=== PATIENT | male | born 2005 | race Caucasian/White ===

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

== ENCOUNTER 2025-03-31 11:52 | Observation (INO) | payer OTHER ==
--- NOTE | 2025-03-31 12:08 | ERPHSYRPT ---
- History of Present Illness Time Seen by Provider: 03/31/25 11:56 Source: patient, old records Physician History: This is a 19-year-old male sent from his primary care physician Dr. Kerr for 3 days of nausea vomiting and diarrhea with abdominal pain and fevers up to 104. He has not eaten for the past 2 days. He saw in outpatient clinic was placed on Zofran which has not helped his appetite. It has not helped his vomiting. He was diagnosed with a viral URI/gastroenteritis. He continues to have symptoms. Allergies/Adverse Reactions: No Known Drug Allergies Allergy (Verified 03/31/25 12:07) Home Medications: Ondansetron ODT 4 MG [Zofran Odt 4 mg] 4 mg PO Q6HPRN PRN 03/31/25 [History] Hx Tetanus, Diphtheria Vaccination/Date Given: Yes Hx Influenza Vaccination/Date Given: Yes Hx Pneumococcal Vaccination/Date Given: No - Review of Systems All Other Systems: Reviewed and Negative (As per HPI otherwise negative) - Past Medical History Pertinent Past Medical History: No GI Medical History: Hernia - Past Surgical History Past Surgical History: Yes Gastrointestinal: Hernia Repair - Social History Smoking Status: Never smoker Exposure to second hand smoke: No Drug Use: none Patient Lives Alone: No - Nursing Vital Signs Nursing Vital Signs: Initial Vital Signs Blood Pressure 152/105 03/31/25 12:00 O2 Sat by Pulse Oximetry 98 03/31/25 12:00 Pain Scale Pain Intensity 0 - Physical Exam Comments: 03/31/25 12:02 General: Well-nourished well-developed. No apparent distress. HEENT: Normocephalic atraumatic no obvious facial or neck deformity or injury. Neck: Supple. No deformity or mass noted. CV: RRR NL Perfusion. No edema Resp: No Respiratory distress or adventitious breath sounds Abd: ND use tenderness to palpation. MSK: No deformity or TTP Neuro: Alert and [place] x4. No gross focal neurologic changes Psych: No SI, HI or grave disability Ordered Tests: Active Orders 24 hr Category Date Time Status IV Insertion STAT Care 03/31/25 12:02 Active NPO (ED) STAT Care 03/31/25 12:02 Active ABDOMEN AND PELVIS W CONTRAST [CT] Stat Exams 03/31/25 12:03 Completed CBC W DIFF Stat Lab 03/31/25 12:18 Completed CMP Stat Lab 03/31/25 12:18 Completed LIPASE Stat Lab 03/31/25 12:18 Completed Lactic Acid Stat Lab 03/31/25 12:02 Completed Manual Differential NC Stat Lab 03/31/25 12:18 Completed Medication Summary Discontinued Medications Generic Name Dose Route Start Last Admin Trade Name Freq PRN Reason Stop Dose Admin Hydromorphone HCl 0.5 mg 03/31/25 12:02 03/31/25 12:25 Hydromorphone 1 Mg/1ml Inj IV 03/31/25 12:03 0.5 mg STAT ONE Administration Hydromorphone HCl Confirm 03/31/25 12:22 Hydromorphone 1 Mg/1ml Inj Administered 03/31/25 12:23 Dose 1 mg .ROUTE .STK-MED ONE Sodium Chloride 1,000 mls @ 999 mls/hr 03/31/25 12:02 03/31/25 13:31 Sodium Chloride 0.9% 1000 Ml IV 03/31/25 13:02 Infused .Q1H1M STA Infusion Sodium Chloride Confirm 03/31/25 12:22 Sodium Chloride 0.9% 1000 Ml Administered 03/31/25 12:23 Dose 1,000 mls @ ud .ROUTE .STK-MED ONE Sodium Chloride 1,000 mls @ 999 mls/hr 03/31/25 13:00 03/31/25 14:11 Sodium Chloride 0.9% 1000 Ml IV 03/31/25 14:00 Infused .Q1H1M STA Infusion Sodium Chloride Confirm 03/31/25 13:07 Sodium Chloride 0.9% 1000 Ml Administered 03/31/25 13:08 Dose 1,000 mls @ ud .ROUTE .STK-MED ONE Ondansetron HCl 4 mg 03/31/25 12:02 03/31/25 12:25 Ondansetron Hcl 4 Mg/2 Ml Vial IV 03/31/25 12:03 4 mg STAT ONE Administration Ondansetron HCl Confirm 03/31/25 12:21 Ondansetron Hcl 4 Mg/2 Ml Vial Administered 03/31/25 12:22 Dose 4 mg .ROUTE .STK-MED ONE Lab/Rad Data: Laboratory Result Diagrams 03/31/25 12:18 03/31/25 12:18 Laboratory Results 03/31/25 03/31/25 03/31/25 Range/Units 12:18 12:18 12:02 WBC 5.5 (4.23-9.07) x10^3/uL RBC 5.45 (4.63-6.08) x10^6/uL Hgb 16.6 (13.7-17.5) g/dL Hct 48.4 (40.1-51.0) % MCV 88.8 (79.0-92.2) fL MCH 30.5 (25.7-32.2) pg MCHC 34.3 (32.3-36.5) g/dL RDW 12.2 (11.6-14.4) % Plt Count 163 (163-337) x10^3/uL MPV 9.1 L (9.4-12.4) fL Segmented Neutrophils 77 H (34.0-67.9) % Band Neutrophils 5 H (0.0-2.0) % Lymphocytes (Manual) 12 L (21.8-53.1) % Monocytes (Manual) 5 L (5.3-12.2) % Atypical Lymphocytes 1 % Platelet Estimate NORMAL (NORMAL) RBC Morphology NORMAL Sodium 130 L (135-145) mmol/L Potassium 4.1 (3.5-5.1) mmol/L Chloride 96 L (98-107) mmol/L Carbon Dioxide 22 (22-30) mmol/L Anion Gap 15.6 H (5-15) MEQ/L BUN 12 (9-20) mg/dL Creatinine 0.86 (0.66-1.25) mg/dL Estimated GFR 127.1 ML/MIN Glucose 114 H (74-106) mg/dL Lactic Acid 1.2 (0.4-2.0) Calcium 8.9 (8.4-10.2) mg/dL Total Bilirubin 1.30 (0.2-1.3) mg/dL AST 30 (17-59) U/L ALT 20 (0-50) U/L Alkaline Phosphatase 94 (38-126) U/L Serum Total Protein 7.2 (6.3-8.2) g/dL Albumin 4.2 (3.5-5.0) g/dL Lipase 36 (23-300) U/L - Progress Progress Note: 10/14/25 14:35 Evidence of colitis on CT. discussed with hospitalist will keep patient in hospital for IV hydration, bowel rest, IV fluids. Patient at this time would likely not be candidate for any GI scoping until colitis was improved and at this time there is no evidence of abscess or other complication with normal white count otherwise stable vital signs. Patient and family including father at bedside. 03/31/25 15:22 - Departure Departure Disposition: Observation Clinical Impression: Colitis, Dehydration, Abdominal pain Condition: Stable Critical Care Time: No Referrals: PRATIMA KWAN MD [Primary Care Provider, [facility]ILY [facility]ACT[facility]] - Follow up/PCP as directed
[2025-03-31 12:21] LABS: Hematocrit 48.4 % (40.1-51.0); Hemoglobin 16.6 g/dL (13.7-17.5); Mean Corpuscular Hemoglobin 30.5 pg (25.7-32.2); Mean Corpuscular Hgb Concent. 34.3 g/dL (32.3-36.5); Platelet Count 163 x10^3/uL (163-337); Red Blood Count 5.45 x10^6/uL (4.63-6.08); White Blood Count 5.5 x10^3/uL (4.23-9.07)
[2025-03-31] MEDS ORDERED: Zofran 4 MG/2 ML VIAL ONE (12:21)
[2025-03-31] MEDS ORDERED: Hydromorphone 1 mg/ml Injection ONE ×2 (12:22→15:31)
[2025-03-31] MEDS: Zofran 4 MG/2 ML VIAL IV ONE (12:25)
[2025-03-31] MEDS: Hydromorphone 1 mg/ml Injection IV ONE ×2 (12:25→15:36)
[2025-03-31 12:37] LABS: Calcium 8.9 mg/dL (8.4-10.2); Carbon Dioxide 22.0 mmol/L (22-30); Creatinine 1 0.86 mg/dL (0.66-1.25); EST GLOMERULAR FILTRATION RATE 127.1 ML/MIN; Glucose 114.0 mg/dL (74-106); Potassium 4.1 mmol/L (3.5-5.1); SGOT/AST 30.0 U/L (17-59); SGPT/ALT 20.0 U/L (0-50); Total Protein 7.2 g/dL (6.3-8.2)
--- NOTE | 2025-03-31 14:09 | XRAY ---
Indication: Pain. Multiple contiguous axial images obtained through the abdomen and pelvis using 80 cc Isovue 370 contrast. Comparison: None Lung bases clear. Heart not enlarged. Noncontrasted stomach and bowel loops appear nonobstructed with normal appendix. There is diffuse circumferential colonic bowel wall thickening either incomplete distention versus colitis. No free fluid/air. Remaining liver, gallbladder, pancreas, spleen, adrenal glands, kidneys, ureters, bladder, and aorta are normal in CT appearance and attenuation. No pathologic retroperitoneal lymphadenopathy. Osseous structures intact. No ventral or inguinal hernias. Impression: 1. Diffuse circumferential colonic bowel wall thickening either incomplete distention versus colitis. Correlate clinically. 2. Remaining CT abdomen/pelvis with contrast exam is negative.
[2025-03-31 15:06] LABS: BAND 5 % (0.0-2.0); Total Cells Counted 100
[2025-03-31] MEDS ORDERED: PIPERACILLIN/TAZOBACTAM IV ONE (15:31)
--- NOTE | 2025-03-31 17:04 | PCM.HP ---
<MEREDITH WALKER - Last Filed: 03/31/25 17:12> History of Present Illness - Chief Complaint Chief Complaint: Colitis; Dehydration; Abdominal Pain Date: 03/31/25 History of Present Illness: is a 19 year old male with no significant PMHX who presented to ED 03/31/25 after referral from his primary care provider for three days of persistent nausea, vomiting, and diarrhea, accompanied by subjective fevers up to 104F. He reported profuse watery diarrhea occurring approximately every 30 minutes, associated with diffuse lower abdominal cramping and aching pain. The pain was described as constant with intermittent exacerbations, non-radiating, and worsened prior to diarrheal episodes. He endorsed poor oral intake over the past two days and minimal relief from outpatient Zofran, which he was prescribed for nausea and vomiting. On arrival, he was afebrile at 99.3F, hypertensive at 152/105 mm Hg, and otherwise hemodynamically stable. Physical examination revealed diffuse lower abdominal tenderness without rebound, guarding, or rigidity, and hyperactive bowel sounds were noted. Laboratory evaluation showed a normal WBC of 5.5 10, sodium 130, chloride 96, anion gap 15.6, and normal lactic acid (1.2 ) and lipase (36 ). CT abdomen and pelvis with contrast revealed diffuse circumferential colonic wall thickening, interpreted as either incomplete distention or colitis, with no abscess, obstruction, or perforation identified. In the ED, the patient received a total of 2 liters of IVF, was started on IV Zosyn for empiric treatment of presumed infectious colitis, and was given analgesia for abdominal pain along with antiemetics for nausea. He remained stable following interventions and was admitted for continued IV fluid therapy, antibiotics, and close monitoring. - Review of Systems Constitutional: Fever Eyes: No Symptoms Ears, Nose, & Throat: No Symptoms Respiratory: No Symptoms Cardiac: No Symptoms Abdominal/Gastrointestinal: Abdominal Pain, Nausea, Vomiting, Diarrhea Genitourinary Symptoms: No Symptoms Musculoskeletal: No Symptoms Skin: No Symptoms Neurological: No Symptoms Psychological: No Symptoms Endocrine: No Symptoms Hematologic/Lymphatic: No Symptoms Immunological/Allergic: No Symptoms Medications & Allergies Home Medications: Home Medication List Ondansetron ODT 4 MG [Zofran Odt 4 mg] 4 mg PO Q6HPRN PRN 03/31/25 [History Confirmed 03/31/25] Allergies/Adverse Reactions: Allergies Allergy/AdvReac Type Severity Reaction Status Date / Time No Known Drug Allergies Allergy Verified 03/31/25 16:03 - Past Medical History Past Medical History: No Neurological History: No Pertinent History ENT History: No Pertinent History Cardiac History: No Pertinent History Respiratory History: No Pertinent History Endocrine Medical History: No Pertinent History Musculoskelatal History: Fractures GI Medical History: Hernia History: No Pertinent History Pyscho-Social History: No Pertinent History Male Reproductive Disorders: No Pertinent History Comment: facial fractures - Past Surgical History Past Surgical History: Yes Neuro Surgical History: No Pertinent History Cardiac History: No Pertinent History Respiratory Surgery: No Pertinent History GI Surgical History: Hernia Repair Genitourinary Surgical Hx: No Pertinent History Musculskeletal Surgical Hx: No Pertinent History Male Surgical History: No Pertinent History Significant Family History: heart disease, cancer, diabetes, hypertension, stroke, other (liver diseas COPD) - Social History Smoking Status: Former smoker How long have you smoked: 1 Exposure to second hand smoke: No Alcohol: Occasionally Drug Use: none - Social Determinants of Health Will the patient participate in the screening: Yes Do you worry about a steady place to live?: No Do you have any problems with any of the following?: No known problems In the past 12 months,have you had to go without utilities?: No Have you or anyone in your house had to go without enough: No Transportation Issues: No Has anyone in your support network made you feel unsafe?: No Does the patient want assistance with any of the above?: No - Physical Exam Vital Signs: Vital Signs - 24 hr Temp Pulse Resp BP BP Pulse Ox 03/31/25 16:16 98.4 F 97 H 16 146/103 92 L 03/31/25 16:00 98.4 F 97 H 16 146/103 92 L 03/31/25 15:30 158/97 96 03/31/25 15:00 162/104 97 03/31/25 14:30 139/95 98 03/31/25 14:00 147/90 97 03/31/25 13:00 143/92 96 03/31/25 12:30 149/92 96 03/31/25 12:01 99.3 F 71 152/105 99 03/31/25 12:00 152/105 98 General Appearance: no apparent distress Neurologic Exam: alert, oriented x 3, cooperative Eye Exam: PERRL/EOMI Ears, Nose, Throat Exam: normal ENT inspection Neck Exam: normal inspection Respiratory Exam: normal breath sounds, lungs clear Cardiovascular Exam: regular rate/rhythm, normal heart sounds Gastrointestinal/Abdomen Exam: soft, tenderness (lower abdomen RLQ/LLQ - Hyperactive BS x 4 quads) Rectal Exam: deferred Back Exam: normal inspection Extremity Exam: normal inspection Skin Exam: normal color Results - Labs Lab/Micro Results: Lab Results-Last 24 Hours 03/31/25 03/31/25 03/31/25 Range/Units 12:02 12:18 12:18 WBC 5.5 (4.23-9.07) x10^3/uL RBC 5.45 (4.63-6.08) x10^6/uL Hgb 16.6 (13.7-17.5) g/dL Hct 48.4 (40.1-51.0) % MCV 88.8 (79.0-92.2) fL MCH 30.5 (25.7-32.2) pg MCHC 34.3 (32.3-36.5) g/dL RDW 12.2 (11.6-14.4) % Plt Count 163 (163-337) x10^3/uL MPV 9.1 L (9.4-12.4) fL Segmented Neutrophils 77 H (34.0-67.9) % Band Neutrophils 5 H (0.0-2.0) % Lymphocytes (Manual) 12 L (21.8-53.1) % Monocytes (Manual) 5 L (5.3-12.2) % Atypical Lymphocytes 1 % Platelet Estimate NORMAL (NORMAL) RBC Morphology NORMAL Sodium 130 L (135-145) mmol/L Potassium 4.1 (3.5-5.1) mmol/L Chloride 96 L (98-107) mmol/L Carbon Dioxide 22 (22-30) mmol/L Anion Gap 15.6 H (5-15) MEQ/L BUN 12 (9-20) mg/dL Creatinine 0.86 (0.66-1.25) mg/dL Estimated GFR 127.1 ML/MIN Glucose 114 H (74-106) mg/dL Lactic Acid 1.2 (0.4-2.0) Calcium 8.9 (8.4-10.2) mg/dL Total Bilirubin 1.30 (0.2-1.3) mg/dL AST 30 (17-59) U/L ALT 20 (0-50) U/L Alkaline Phosphatase 94 (38-126) U/L Serum Total Protein 7.2 (6.3-8.2) g/dL Albumin 4.2 (3.5-5.0) g/dL Lipase 36 (23-300) U/L - Radiology Impressions Radiology Exams & Impressions: Radiology Procedures Category Date Time Status ABDOMEN AND PELVIS W CONTRAST [CT] Stat Exams 03/31/25 12:03 Completed Assessment/Plan (1) Acute colitis Current Visit: Yes Status: Acute Assessment & Plan: -CT abdomen and pelvis with contrast revealed diffuse circumferential colonic wall thickening, interpreted as either incomplete distention or colitis, with no abscess, obstruction, or perforation identified -Continue IV Zosyn for broad-spectrum empiric coverage pending stool studies; de-escalate once pathogen identified -NPO; advance diet as tolerated once symptoms improve. -Obtain stool studies including culture, C. difficile toxin, and GI pathogen panel. --CBC, CMP reviewed- trend -Monitor stool frequency, abdominal exam, and hydration status closely. -Consider surgery consultation if diarrhea persists or patient develops worsening pain, hematochezia, or systemic symptoms. Code(s): K52.9 - NONINFECTIVE GASTROENTERITIS AND COLITIS, UNSPECIFIED (2) Hyponatremia Current Visit: Yes Status: Acute Assessment & Plan: -mild at 130- Received 2 L normal saline bolus in the ED; continue isotonic maintenance fluids until oral intake is adequate. -Monitor serum sodium and electrolytes -Reassess volume status daily; taper IV fluids once patient tolerates oral hyd ration. Code(s): E87.1 - HYPO-OSMOLALITY AND HYPONATREMIA (3) Nausea & vomiting Current Visit: Yes Status: Acute Assessment & Plan: -Continue IV Zofran PRN for symptomatic control. -NPO until vomiting resolves, then initiate clear liquids. -Monitor for improvement as dehydration and infection resolve. Code(s): R11.2 - NAUSEA WITH VOMITING, UNSPECIFIED (4) Diarrhea Current Visit: Yes Status: Acute Assessment & Plan: -Hold immodium until CDiff complete - if negative can start -CDiff, stool culture, O&P, giardia -IVF Code(s): R19.7 - DIARRHEA, UNSPECIFIED (5) Abdominal pain Current Visit: Yes Status: Acute Assessment & Plan: -see plan for colitis Code(s): R10.9 - UNSPECIFIED ABDOMINAL PAIN (6) Reactive hypertension Current Visit: Yes Status: Acute Assessment & Plan: -Likely secondary to discomfort, stress, and dehydration. -Continue BP monitoring during rehydration; expect normalization with volume correction. -No initiation of chronic antihypertensive therapy at this time. VTE: SCD PPI: Protinix Dispo: 1-2 days Code status: Full code Plan of care time spent > 45 mins Code(s): I10 - ESSENTIAL (PRIMARY) HYPERTENSION Telemedicine Encounter - Telemedicine Encounter Telemedicine Encounter: "The entirety of this encounter was performed via Telemedicine" This visit was performed using real-time audio and video connection between my location and thepatients locationwith the assistance of a surrogateat the patients location. Written or verbal consent was obtained from the patient/guardian to perform this visit usingEmgonchrFlowgramtelemedicine technology. Any patient questions regarding the telemedicine interaction were answered. <AMRBOSIO PARHAM - Last Filed: 03/31/25 19:34> History of Present Illness - Chief Complaint History of Present Illness: is a 19 year old male. - Physical Exam Vital Signs: Vital Signs - 24 hr Temp Pulse Resp BP BP Pulse Ox 03/31/25 18:07 86 145/91 03/31/25 16:16 98.4 F 97 H 16 146/103 92 L 03/31/25 16:00 98.4 F 97 H 16 146/103 92 L 03/31/25 15:30 158/97 96 03/31/25 15:00 162/104 97 03/31/25 14:30 139/95 98 03/31/25 14:00 147/90 97 03/31/25 13:00 143/92 96 03/31/25 12:30 149/92 96 03/31/25 12:01 99.3 F 71 152/105 99 03/31/25 12:00 152/105 98 Results - Labs Lab/Micro Results: Lab Results-Last 24 Hours 03/31/25 03/31/25 03/31/25 Range/Units 12:02 12:18 12:18 WBC 5.5 (4.23-9.07) x10^3/uL RBC 5.45 (4.63-6.08) x10^6/uL Hgb 16.6 (13.7-17.5) g/dL Hct 48.4 (40.1-51.0) % MCV 88.8 (79.0-92.2) fL MCH 30.5 (25.7-32.2) pg MCHC 34.3 (32.3-36.5) g/dL RDW 12.2 (11.6-14.4) % Plt Count 163 (163-337) x10^3/uL MPV 9.1 L (9.4-12.4) fL Segmented Neutrophils 77 H (34.0-67.9) % Band Neutrophils 5 H (0.0-2.0) % Lymphocytes (Manual) 12 L (21.8-53.1) % Monocytes (Manual) 5 L (5.3-12.2) % Atypical Lymphocytes 1 % Platelet Estimate NORMAL (NORMAL) RBC Morphology NORMAL Sodium 130 L (135-145) mmol/L Potassium 4.1 (3.5-5.1) mmol/L Chloride 96 L (98-107) mmol/L Carbon Dioxide 22 (22-30) mmol/L Anion Gap 15.6 H (5-15) MEQ/L BUN 12 (9-20) mg/dL Creatinine 0.86 (0.66-1.25) mg/dL Estimated GFR 127.1 ML/MIN Glucose 114 H (74-106) mg/dL POC Glucometer (74 to 106) mg/dL Lactic Acid 1.2 (0.4-2.0) Calcium 8.9 (8.4-10.2) mg/dL Total Bilirubin 1.30 (0.2-1.3) mg/dL AST 30 (17-59) U/L ALT 20 (0-50) U/L Alkaline Phosphatase 94 (38-126) U/L Serum Total Protein 7.2 (6.3-8.2) g/dL Albumin 4.2 (3.5-5.0) g/dL Lipase 36 (23-300) U/L C. difficile Screen (NEGATIVE) C.difficile [id number]-[id number] (NEGATIVE) 03/31/25 03/31/25 Range/Units 17:26 17:53 WBC (4.23-9.07) x10^3/uL RBC (4.63-6.08) x10^6/uL Hgb (13.7-17.5) g/dL Hct (40.1-51.0) % MCV (79.0-92.2) fL MCH (25.7-32.2) pg MCHC (32.3-36.5) g/dL RDW (11.6-14.4) % Plt Count (163-337) x10^3/uL MPV (9.4-12.4) fL Segmented Neutrophils (34.0-67.9) % Band Neutrophils (0.0-2.0) % Lymphocytes (Manual) (21.8-53.1) % Monocytes (Manual) (5.3-12.2) % Atypical Lymphocytes % Platelet Estimate (NORMAL) RBC Morphology Sodium (135-145) mmol/L Potassium (3.5-5.1) mmol/L Chloride (98-107) mmol/L Carbon Dioxide (22-30) mmol/L Anion Gap (5-15) MEQ/L BUN (9-20) mg/dL Creatinine (0.66-1.25) mg/dL Estimated GFR ML/MIN Glucose (74-106) mg/dL POC Glucometer 95 (74 to 106) mg/dL Lactic Acid (0.4-2.0) Calcium (8.4-10.2) mg/dL Total Bilirubin (0.2-1.3) mg/dL AST (17-59) U/L ALT (0-50) U/L Alkaline Phosphatase (38-126) U/L Serum Total Protein (6.3-8.2) g/dL Albumin (3.5-5.0) g/dL Lipase (23-300) U/L C. difficile Screen NEGATIVE (NEGATIVE) C.difficile 027-NAP1-B1 PRESUMPTIVE NEGATIVE (NEGATIVE) Accuchecks Date 03/31/25 Time 17:30 - Radiology Impressions Radiology Exams & Impressions: Radiology Procedures Category Date Time Status ABDOMEN AND PELVIS W CONTRAST [CT] Stat Exams 03/31/25 12:03 Completed Telemedicine Encounter - Telemedicine Encounter Telemedicine Encounter: "The entirety of this encounter was performed via Telemedicine" This visit was performed using real-time audio and video connection between my location and thepatients locationwith the assistance of a surrogateat the patients location. Written or verbal consent was obtained from the p atient/guardian to perform this visit usingFirst Wave technology. Any patient questions regarding the telemedicine interaction were answered. MAXWELL Encounter - MAXWELL Encounter Attestation MAXWELL Encounter Attestation: "IhSIRISHA Morrissey andhavediscussed pertinent aspects of their care with Meredith Copeland agree with the history, physical exam (any modifications based on my personal exam will be noted below), assessment, and plan as outlined in original note. Please see immediately below for my summary of findings and additional assessment and plan along with any meaningful corrections/explanations to the Subjective/Objective portions of the MAXWELL note will be noted." My portion of the encounter took place via telemedicine. -Patient with 3 days of severe diarrhea, however does not have any vomiting or abdominal pain anymore. Reports fevers but normal WBC on labs. Possible colitis on CT. Clinical picture more consistent with viral gastroenteritis however started on antibiotic due to report of high grade fever, colitis on CT. Stool sent for testing. Will monitor for improvement.
[2025-03-31] MEDS ORDERED: Zofran 4 MG/2 ML VIAL IV PRN (17:15)
[2025-03-31] MEDS ORDERED: FEVERALL 650 MG PR PRN (17:15)
[2025-03-31] MEDS: MORPHINE SULFATE 2 MG INJ IV PRN (17:30)
[2025-03-31 18:47] LABS: 027 TOX PROD PRESUMPTIVE NEGATIVE (NEGATIVE); TOXIGENIC C. DIFF ORG NEGATIVE (NEGATIVE)
[2025-03-31] MEDS: TYLENOL 325 MG PO PRN (19:30)
[2025-03-31] MEDS: MORPHINE SULFATE 4 MG INJ IV ONE (19:30)
[2025-03-31 20:32] LABS: Calcium 8.2 mg/dL (8.4-10.2); Carbon Dioxide 22.0 mmol/L (22-30); Creatinine 1 0.82 mg/dL (0.66-1.25); EST GLOMERULAR FILTRATION RATE 129.0 ML/MIN; Glucose 97.0 mg/dL (74-106); Potassium 3.8 mmol/L (3.5-5.1)
[2025-04-01] MEDS: MORPHINE SULFATE 4 MG INJ IV PRN (00:05)
[2025-04-01] MEDS: IMODIUM 2 MG PO PRN (00:13)
[2025-04-01 04:56] LABS: Hematocrit 41.6 % (40.1-51.0); Hemoglobin 14.2 g/dL (13.7-17.5); Mean Corpuscular Hemoglobin 30.7 pg (25.7-32.2); Mean Corpuscular Hgb Concent. 34.1 g/dL (32.3-36.5); Platelet Count 138 x10^3/uL (163-337); Red Blood Count 4.62 x10^6/uL (4.63-6.08); White Blood Count 4.8 x10^3/uL (4.23-9.07)
[2025-04-01 05:05] LABS: Calcium 8.3 mg/dL (8.4-10.2); Carbon Dioxide 23.0 mmol/L (22-30); Creatinine 1 0.83 mg/dL (0.66-1.25); EST GLOMERULAR FILTRATION RATE 128.5 ML/MIN; Glucose 91.0 mg/dL (74-106); Potassium 3.6 mmol/L (3.5-5.1); SGOT/AST 21.0 U/L (17-59); SGPT/ALT 13.0 U/L (0-50); Total Protein 6.0 g/dL (6.3-8.2)
[2025-04-01 05:39] LABS: BAND 18 % (0.0-2.0); Total Cells Counted 100
[2025-04-01] MEDS: MORPHINE SULFATE 2 MG INJ IV PRN (07:28)
[2025-04-01] MEDS: NORCO 5/325 MG PO PRN (08:52)
[2025-04-01] MEDS: PROTONIX 40 MG IV IV SCH (08:53)
[2025-04-01] MEDS: BENTYL 20 MG PO SCH (09:00)
--- NOTE | 2025-04-01 09:03 | PCM.NOTE ---
Date and Time: 04/01/25 0856 Subjective Assessment: is a 19 year old male with no significant PMHX who presented to ED 03/31/25 after referral from his primary care provider for three days of persistent nausea, vomiting, and diarrhea, accompanied by subjective fevers up to 104F. He reported profuse watery diarrhea occurring approximately every 30 minutes, associated with diffuse lower abdominal cramping and aching pain. The pain was described as constant with intermittent exacerbations, non-radiating, and worsened prior to diarrheal episodes. He endorsed poor oral intake over the past two days and minimal relief from outpatient Zofran, which he was prescribed for nausea and vomiting. On arrival, he was afebrile at 99.3F, hypertensive at 152/105 mm Hg, and otherwise hemodynamically stable. Physical examination revealed diffuse lower abdominal tenderness without rebound, guarding, or rigidity, and hyperactive bowel sounds were noted. Laboratory evaluation showed a normal WBC of 5.5 10, sodium 130, chloride 96, anion gap 15.6, and normal lactic acid (1.2 ) and lipase (36 ). CT abdomen and pelvis with contrast revealed diffuse c ircumferential colonic wall thickening, interpreted as either incomplete distention or colitis, with no abscess, obstruction, or perforation identified. In the ED, the patient received a total of 2 liters of IVF, was started on IV Zosyn for empiric treatment of presumed infectious colitis, and was given analgesia for abdominal pain along with antiemetics for nausea. He remained stable following interventions and was admitted for continued IV fluid therapy, antibiotics, and close monitoring. 04/01/25: Met with patient bedside. Endorses continued diffuse lower abdominal pain and diarrhea. No nausea/vomiting. Tolerating a CLD although patient states he feels more crampy when eating. Abdominal pain has improved some although patient stated morphine and norco not helping with cramping type pain. Opioids discontinued and Bentyl added. Patient NPO with sips. Patient also provided with heating pad. - Review of Systems Constitutional: No Symptoms Eyes: No Symptoms Ears, Nose, & Throat: No Symptoms Respiratory: No Symptoms Cardiac: No Symptoms Abdominal/Gastrointestinal: Abdominal Pain, Diarrhea Genitourinary Symptoms: No Symptoms Musculoskeletal: No Symptoms Skin: No Symptoms Neurological: No Symptoms Psychological: No Symptoms Endocrine: No Symptoms Hematologic/Lymphatic: No Symptoms Immunological/Allergic: No Symptoms Objective Exam General Appearance: no apparent distress Neurologic Exam: alert, oriented x 3, cooperative Skin Exam: normal color Eye Exam: PERRL Ears, Nose, Throat Exam: normal ENT inspection Neck Exam: normal inspection Respiratory Exam: normal breath sounds, lungs clear Cardiovascular Exam: regular rate/rhythm, normal heart sounds Gastrointestinal/Abdomen Exam: soft, normal bowel sounds, tenderness (low abdomen diffuse) Extremity Exam: normal inspection Back Exam: normal inspection Male Genitalia Exam: deferred Rectal Exam: deferred Objective Data Vital Signs: Vital Signs - 24 hr Temp Pulse Resp BP BP Pulse Ox 04/01/25 07:00 98.9 F 80 16 139/84 97 04/01/25 03:00 98.3 F 76 18 126/79 95 03/31/25 23:00 97.9 F 52 L 16 160/94 95 03/31/25 19:49 100.2 F 85 18 142/99 97 03/31/25 18:07 86 145/91 03/31/25 16:16 98.4 F 97 H 16 146/103 92 L 03/31/25 16:00 98.4 F 97 H 16 146/103 92 L 03/31/25 15:30 158/97 96 03/31/25 15:00 162/104 97 03/31/25 14:30 139/95 98 03/31/25 14:00 147/90 97 03/31/25 13:00 143/92 96 03/31/25 12:30 149/92 96 03/31/25 12:01 99.3 F 71 152/105 99 03/31/25 12:00 152/105 98 Pain Assessment - Last Documented Pain Intensity 7 Pain Scale Used 0-10 Pain Scale Intake and Output: Intake & Output 03/29/25 03/30/25 03/31/25 04/01/25 11:59 11:59 11:59 11:59 Intake Total 280 Balance 280 Weight 81 kg Lab Results: Lab Results-Last 24 Hours 03/31/25 03/31/25 03/31/25 Range/Units 12:02 12:18 12:18 WBC 5.5 (4.23-9.07) x10^3/uL RBC 5.45 (4.63-6.08) x10^6/uL Hgb 16.6 (13.7-17.5) g/dL Hct 48.4 (40.1-51.0) % MCV 88.8 (79.0-92.2) fL MCH 30.5 (25.7-32.2) pg MCHC 34.3 (32.3-36.5) g/dL RDW 12.2 (11.6-14.4) % Plt Count 163 (163-337) x10^3/uL MPV 9.1 L (9.4-12.4) fL Segmented Neutrophils 77 H (34.0-67.9) % Band Neutrophils 5 H (0.0-2.0) % Lymphocytes (Manual) 12 L (21.8-53.1) % Monocytes (Manual) 5 L (5.3-12.2) % Atypical Lymphocytes 1 % Platelet Estimate NORMAL (NORMAL) RBC Morphology NORMAL Sodium 130 L (135-145) mmol/L Potassium 4.1 (3.5-5.1) mmol/L Chloride 96 L (98-107) mmol/L Carbon Dioxide 22 (22-30) mmol/L Anion Gap 15.6 H (5-15) MEQ/L BUN 12 (9-20) mg/dL Creatinine 0.86 (0.66-1.25) mg/dL Estimated GFR 127.1 ML/MIN Glucose 114 H (74-106) mg/dL POC Glucometer (74 to 106) mg/dL Lactic Acid 1.2 (0.4-2.0) Calcium 8.9 (8.4-10.2) mg/dL Total Bilirubin 1.30 (0.2-1.3) mg/dL AST 30 (17-59) U/L ALT 20 (0-50) U/L Alkaline Phosphatase 94 (38-126) U/L Serum Total Protein 7.2 (6.3-8.2) g/dL Albumin 4.2 (3.5-5.0) g/dL Lipase 36 (23-300) U/L C. difficile Screen (NEGATIVE) C.difficile 027-NAP1-B1 (NEGATIVE) 03/31/25 03/31/25 03/31/25 Range/Units 17:26 17:53 19:55 WBC (4.23-9.07) x10^3/uL RBC (4.63-6.08) x10^6/uL Hgb (13.7-17.5) g/dL Hct (40.1-51.0) % MCV (79.0-92.2) fL MCH (25.7-32.2) pg MCHC (32.3-36.5) g/dL RDW (11.6-14.4) % Plt Count (163-337) x10^3/uL MPV (9.4-12.4) fL Segmented Neutrophils (34.0-67.9) % Band Neutrophils (0.0-2.0) % Lymphocytes (Manual) (21.8-53.1) % Monocytes (Manual) (5.3-12.2) % Atypical Lymphocytes % Platelet Estimate (NORMAL) RBC Morphology Sodium (135-145) mmol/L Potassium (3.5-5.1) mmol/L Chloride (98-107) mmol/L Carbon Dioxide (22-30) mmol/L Anion Gap (5-15) MEQ/L BUN (9-20) mg/dL Creatinine (0.66-1.25) mg/dL Estimated GFR ML/MIN Glucose (74-106) mg/dL POC Glucometer 95 86 (74 to 106) mg/dL Lactic Acid (0.4-2.0) Calcium (8.4-10.2) mg/dL Total Bilirubin (0.2-1.3) mg/dL AST (17-59) U/L ALT (0-50) U/L Alkaline Phosphatase (38-126) U/L Serum Total Protein (6.3-8.2) g/dL Albumin (3.5-5.0) g/dL Lipase (23-300) U/L C. difficile Screen NEGATIVE (NEGATIVE) C.difficile 027-NAP1-B1 PRESUMPTIVE NEGATIVE (NEGATIVE) 03/31/25 03/31/25 04/01/25 Range/Units 20:00 23:24 04:17 WBC (4.23-9.07) x10^3/uL RBC (4.63-6.08) x10^6/uL Hgb (13.7-17.5) g/dL Hct (40.1-51.0) % MCV (79.0-92.2) fL MCH (25.7-32.2) pg MCHC (32.3-36.5) g/dL RDW (11.6-14.4) % Plt Count (163-337) x10^3/uL MPV (9.4-12.4) fL Segmented Neutrophils (34.0-67.9) % Band Neutrophils (0.0-2.0) % Lymphocytes (Manual) (21.8-53.1) % Monocytes (Manual) (5.3-12.2) % Atypical Lymphocytes % Platelet Estimate (NORMAL) RBC Morphology Sodium 131 L (135-145) mmol/L Potassium 3.8 (3.5-5.1) mmol/L Chloride 101 (98-107) mmol/L Carbon Dioxide 22 (22-30) mmol/L Anion Gap 12.3 (5-15) MEQ/L BUN 11 (9-20) mg/dL Creatinine 0.82 (0.66-1.25) mg/dL Estimated GFR 129.0 ML/MIN Glucose 97 (74-106) mg/dL POC Glucometer 123 H 93 (74 to 106) mg/dL Lactic Acid (0.4-2.0) Calcium 8.2 L (8.4-10.2) mg/dL Total Bilirubin (0.2-1.3) mg/dL AST (17-59) U/L ALT (0-50) U/L Alkaline Phosphatase (38-126) U/L Serum Total Protein (6.3-8.2) g/dL Albumin (3.5-5.0) g/dL Lipase (23-300) U/L C. difficile Screen (NEGATIVE) C.difficile 027-NAP1-B1 (NEGATIVE) 04/01/25 04/01/25 Range/Units 04:25 04:25 WBC 4.8 (4.23-9.07) x10^3/uL RBC 4.62 L (4.63-6.08) x10^6/uL Hgb 14.2 (13.7-17.5) g/dL Hct 41.6 (40.1-51.0) % MCV 90.0 (79.0-92.2) fL MCH 30.7 (25.7-32.2) pg MCHC 34.1 (32.3-36.5) g/dL RDW 12.7 (11.6-14.4) % Plt Count 138 L (163-337) x10^3/uL MPV 9.4 (9.4-12.4) fL Segmented Neutrophils 40 (34.0-67.9) % Band Neutrophils 18 H (0.0-2.0) % Lymphocytes (Manual) 32 (21.8-53.1) % Monocytes (Manual) 9 (5.3-12.2) % Atypical Lymphocytes 1 % Platelet Estimate NORMAL (NORMAL) RBC Morphology NORMAL Sodium 133 L (135-145) mmol/L Potassium 3.6 (3.5-5.1) mmol/L Chloride 102 (98-107) mmol/L Carbon Dioxide 23 (22-30) mmol/L Anion Gap 11.8 (5-15) MEQ/L BUN 9 (9-20) mg/dL Creatinine 0.83 (0.66-1.25) mg/dL Estimated GFR 128.5 ML/MIN Glucose 91 (74-106) mg/dL POC Glucometer (74 to 106) mg/dL Lactic Acid (0.4-2.0) Calcium 8.3 L (8.4-10.2) mg/dL Total Bilirubin 0.80 (0.2-1.3) mg/dL AST 21 (17-59) U/L ALT 13 (0-50) U/L Alkaline Phosphatase 72 (38-126) U/L Serum Total Protein 6.0 L (6.3-8.2) g/dL Albumin 3.4 L (3.5-5.0) g/dL Lipase (23-300) U/L C. difficile Screen (NEGATIVE) C.difficile 027-NAP1-B1 (NEGATIVE) Radiology Exams: Radiology Procedures Category Date Time Status ABDOMEN AND PELVIS W CONTRAST [CT] Stat Exams 03/31/25 12:03 Completed Medications: Medications Generic Name Dose Route Start Last Admin Trade Name Freq PRN Reason Stop Dose Admin Acetaminophen 650 mg 03/31/25 17:15 03/31/25 19:30 Acetaminophen 325 Mg Tablet PO 04/30/25 17:14 650 mg Q4H PRN PRN Administration PAIN, FEVER, HEADACHE Acetaminophen 650 mg 03/31/25 17:15 Acetaminophen 650 Mg Supp.Rect NH 04/30/25 17:14 Q4H PRN PRN PAIN AND/OR FEVER Hydrocodone Bitart/Acetaminophen 1 tab 04/01/25 07:50 04/01/25 08:52 Hydrocodone/Apap 5/325 1 Tab Tablet PO 04/06/25 07:49 1 tab Q4H PRN PRN Administration PAIN Dicyclomine HCl 20 mg 04/01/25 10:00 Dicyclomine Hcl 20 Mg Tablet PO 05/01/25 09:59 QID EM Sodium Chloride 1,000 mls @ 100 mls/hr 03/31/25 17:15 04/01/25 03:17 Sodium Chloride 0.9% 1000 Ml IV 04/30/25 17:14 100 mls/hr .Q10H EM Administration Piperacillin Sod/Tazobactam 100 mls @ 200 mls/hr 03/31/25 21:00 04/01/25 08:53 Sod 3.375 gm/ Sodium Chloride IV 04/03/25 20:59 200 mls/hr Q6H EM Administration Loperamide HCl 2 mg 04/01/25 00:10 04/01/25 08:53 Loperamide Hcl 2 Mg Capsule PO 05/01/25 00:09 2 mg PRN PRN Administration DIARRHEA Ondansetron HCl 4 mg 03/31/25 17:15 Ondansetron Hcl 4 Mg/2 Ml Vial IV 04/30/25 17:14 Q6H PRN PRN NAUSEA/VOMITING Pantoprazole Sodium 40 mg 04/01/25 10:00 04/01/25 08:53 Pantoprazole 40 Mg Vial IV 05/01/25 09:59 40 mg BID EM Administration Discontinued Medications Generic Name Dose Route Start Last Admin Trade Name Freq PRN Reason Stop Dose Admin Dicyclomine HCl 20 mg 04/01/25 10:00 Dicyclomine Hcl 20 Mg Tablet PO 05/01/25 09:59 QID EM Hydromorphone HCl 0.5 mg 03/31/25 12:02 03/31/25 12:25 Hydromorphone 1 Mg/1ml Inj IV 03/31/25 12:03 0.5 mg STAT ONE Administration Hydromorphone HCl Confirm 03/31/25 12:22 Hydromorphone 1 Mg/1ml Inj Administered 03/31/25 12:23 Dose 1 mg .ROUTE .STK-MED ONE Hydromorphone HCl 0.5 mg 03/31/25 15:18 03/31/25 15:36 Hydromorphone 1 Mg/1ml Inj IV 03/31/25 15:19 0.5 mg STAT ONE Administration Hydromorphone HCl Confirm 03/31/25 15:31 Hydromorphone 1 Mg/1ml Inj Administered 03/31/25 15:32 Dose 1 mg .ROUTE .STK-MED ONE Sodium Chloride 1,000 mls @ 999 mls/hr 03/31/25 12:02 03/31/25 13:31 Sodium Chloride 0.9% 1000 Ml IV 03/31/25 13:02 Infused .Q1H1M STA Infusion Sodium Chloride Confirm 03/31/25 12:22 Sodium Chloride 0.9% 1000 Ml Administered 03/31/25 12:23 Dose 1,000 mls @ ud .ROUTE .STK-MED ONE Sodium Chloride 1,000 mls @ 999 mls/hr 03/31/25 13:00 03/31/25 14:11 Sodium Chloride 0.9% 1000 Ml IV 03/31/25 14:00 Infused .Q1H1M STA Infusion Sodium Chloride Confirm 03/31/25 13:07 Sodium Chloride 0.9% 1000 Ml Administered 03/31/25 13:08 Dose 1,000 mls @ ud .ROUTE .STK-MED ONE Piperacillin Sod/Tazobactam 100 mls @ 200 mls/hr 03/31/25 15:18 03/31/25 15:36 Sod 3.375 gm/ Sodium Chloride IV 03/31/25 15:47 200 mls/hr STAT STA 200 mls/hr Administration Sodium Chloride Confirm 03/31/25 15:32 Sodium Chloride 0.9% Administered 03/31/25 15:33 Dose 100 mls @ ud .ROUTE .STK-MED ONE Morphine Sulfate 1 mg 03/31/25 17:22 03/31/25 17:30 Morphine Sulfate 2 Mg/Ml Inj IV 04/05/25 17:21 1 mg Q6H PRN PRN Administration SEVERE PAIN Morphine Sulfate 2 mg 03/31/25 19:14 04/01/25 07:28 Morphine Sulfate 2 Mg/Ml Inj IV 04/05/25 19:13 2 mg Q4H PRN PRN Administration SEVERE PAIN Morphine Sulfate 4 mg 03/31/25 19:15 04/01/25 00:05 Morphine Sulfate 4 Mg/Ml Injection IV 04/05/25 19:14 4 mg Q4H PRN PRN Administration SEVERE PAIN Morphine Sulfate 4 mg 03/31/25 19:18 03/31/25 19:30 Morphine Sulfate 4 Mg/Ml Injection IV 03/31/25 19:19 4 mg STAT ONE Administration Ondansetron HCl 4 mg 03/31/25 12:02 03/31/25 12:25 Ondansetron Hcl 4 Mg/2 Ml Vial IV 03/31/25 12:03 4 mg STAT ONE Administration Ondansetron HCl Confirm 03/31/25 12:21 Ondansetron Hcl 4 Mg/2 Ml Vial Administered 03/31/25 12:22 Dose 4 mg .ROUTE .STK-MED ONE Piperacillin Sod/Tazobactam Sod Confirm 03/31/25 15:31 Piperacillin/Tazobactam Sodium 3.375 Gm Vial Administered 03/31/25 15:32 Dose 3.375 gm IV .STK-MED ONE Assessment/Plan (1) Acute colitis Current Visit: Yes Status: Acute Assessment & Plan: -CT abdomen and pelvis with contrast revealed diffuse circumferential colonic wall thickening, interpreted as either incomplete distention or colitis, with no abscess, obstruction, or perforation identified -Continue IV Zosyn for broad-spectrum empiric coverage pending stool studies; de-escalate once pathogen identified -NPO; advance diet as tolerated once symptoms improve. -Obtain stool studies including culture, C. difficile toxin, and GI pathogen panel. --CBC, CMP reviewed- trend -Monitor stool frequency, abdominal exam, and hydration status closely. -Consider surgery consultation if diarrhea persists or patient develops worsening pain, hematochezia, or systemic symptoms. 04/01: -continue IV zosyn -Discontinue Morphine/Rawlings- add Bentyl -CLD if abdominal pain improves otherwise NPO with sips -WBC reviewed and WNL -CDiff negative; Stool culture -O&P giardia pending -immodium prn Code(s): K52.9 - NONINFECTIVE GASTROENTERITIS AND COLITIS, UNSPECIFIED (2) Hyponatremia Current Visit: Yes Status: Acute Assessment & Plan: -mild at 130- Received 2 L normal saline bolus in the ED; continue isotonic maintenance fluids until oral intake is adequate. -Monitor serum sodium and electrolytes -Reassess volume status daily; taper IV fluids once patient tolerates oral hydration. 04/01/25: -Sodium level reviewed at 133-improving- continue IVF Code(s): E87.1 - HYPO-OSMOLALITY AND HYPONATREMIA (3) Nausea & vomiting Current Visit: Yes Status: Acute Assessment & Plan: -Continue IV Zofran PRN for symptomatic control. -NPO until vomiting resolves, then initiate clear liquids. -Monitor for improvement as dehydration and infection resolve. 04/01: -Resolved- continue Zofran prn Code(s): R11.2 - NAUSEA WITH VOMITING, UNSPECIFIED (4) Diarrhea Current Visit: Yes Status: Acute Assessment & Plan: -Hold immodium until CDiff complete - if negative can start -CDiff, stool culture, O&P, giardia -IVF 04/01: -Cdiff negative -add immodium -cultures, O&P, giardia pending Code(s): R19.7 - DIARRHEA, UNSPECIFIED (5) Abdominal pain Current Visit: Yes Status: Acute Assessment & Plan: -see plan for colitis Code(s): R10.9 - UNSPECIFIED ABDOMINAL PAIN (6) Reactive hypertension Current Visit: Yes Status: Acute Assessment & Plan: -Likely secondary to discomfort, stress, and dehydration. -Continue BP monitoring during rehydration; expect normalization with volume correction. -No initiation of chronic antihypertensive therapy at this time. 04/01: -BP now stable VTE: SCD PPI: Protinix Dispo: 1-2 days Code status: Full code Plan of care time spent > 35 mins Code(s): K52.9 - NONINFECTIVE GASTROENTERITIS AND COLITIS, UNSPECIFIED (2) Hyponatremia Current Visit: Yes Status: Acute Code(s): E87.1 - HYPO-OSMOLALITY AND HYPONATREMIA (3) Nausea & vomiting Current Visit: Yes Status: Acute Code(s): R11.2 - NAUSEA WITH VOMITING, UNSPECIFIED (4) Diarrhea Current Visit: Yes Status: Acute Code(s): R19.7 - DIARRHEA, UNSPECIFIED (5) Abdominal pain Current Visit: Yes Status: Acute Code(s): R10.9 - UNSPECIFIED ABDOMINAL PAIN (6) Reactive hypertension Current Visit: Yes Status: Acute Code(s): I10 - ESSENTIAL (PRIMARY) H YPERTENSION
[2025-04-01] MEDS ORDERED: BENTYL 20 MG PO SCH (10:00)
[2025-04-01 12:59] LABS: Hematocrit 40.2 % (40.1-51.0); Hemoglobin 13.5 g/dL (13.7-17.5)
[2025-04-02 00:03] VITALS: RESP 18
[2025-04-02 04:15] VITALS: O2SAT 97
[2025-04-02 05:00] LABS: Hematocrit 37.5 % (40.1-51.0); Hemoglobin 12.8 g/dL (13.7-17.5); Mean Corpuscular Hemoglobin 30.6 pg (25.7-32.2); Mean Corpuscular Hgb Concent. 34.1 g/dL (32.3-36.5); Platelet Count 181 x10^3/uL (163-337); Red Blood Count 4.18 x10^6/uL (4.63-6.08); White Blood Count 4.9 x10^3/uL (4.23-9.07)
[2025-04-02 05:15] LABS: Calcium 8.3 mg/dL (8.4-10.2); Carbon Dioxide 26.0 mmol/L (22-30); Creatinine 1 0.72 mg/dL (0.66-1.25); EST GLOMERULAR FILTRATION RATE 134.1 ML/MIN; Glucose 94.0 mg/dL (74-106); Potassium 3.7 mmol/L (3.5-5.1); SGOT/AST 39.0 U/L (17-59); SGPT/ALT 19.0 U/L (0-50); Total Protein 5.7 g/dL (6.3-8.2)
[2025-04-02 05:49] LABS: BAND 3 % (0.0-2.0); Total Cells Counted 100
[2025-04-02 07:31] VITALS: BP 124/68; PULSE 70; TEMP 98.6
--- NOTE | 2025-04-02 09:19 | PCM.DS ---
Discharge Summary Date of Admission: 03/31/25 15:58 Date of Discharge: 04/02/25 Admitting Physician: AMBROSIO PARHAM MD Primary Care Provider: PRATIMA KWAN LEFTY Allergies Allergies No Known Drug Allergies Allergy (Verified 03/31/25 16:03) Hospital Summary - Hospital Course Hospital Course: Mr. Martinez is a 19-year-old male with no significant past medical history who presented on 03/31/25 with three days of profuse watery diarrhea, persistent nausea, vomiting, and subjective fevers up to 104F. He described frequent episodes of diarrhea approximately every 30 minutes accompanied by diffuse lower abdominal cramping and poor oral intake. Outpatient Zofran provided minimal relief. On arrival to the ED, he was afebrile at 99.3F, hypertensive at 152/105 mm Hg, and otherwise hemodynamically stable. Examination revealed diffuse lower abdominal tenderness with hyperactive bowel sounds but no rebound or guarding. Initial labs showed a normal WBC of 5.5 , sodium 130 , chloride 96 L, anion gap 15.6, with normal lactate (1.2 ) and lipase (36 U/L). CT abdomen/pelvis with IV contrast demonstrated diffuse circumferential colonic wall thickening consistent with colitis versus incomplete distention, without abscess, obstruction, or perforation. He received 2 L IV fluids and was started on IV Zosyn for empiric treatment of presumed infectious colitis. On 04/01/25, the patient continued to have diarrhea and cramping abdominal pain but no nausea or vomiting. He tolerated clear liquids, though cramping increased with oral intake. Opioids were discontinued, and Bentyl was added for visceral pain control. C. difficile testing returned negative, and stool cultures, ova/parasite, and Giardia panels were sent. Electrolytes and CBC were trended; sodium improved from 130 - 133 with isotonic fluid therapy. By 04/02/25, the patient reported significant improvement. Nausea and vomiting had resolved, and only one diarrheal episode was noted overnight. Abdominal pain was well- controlled on Bentyl. He tolerated advancement of diet without recurrence of nausea or worsening pain. Vitals and labs were stable: WBC 4.9 , sodium 133, potassium 3.7. He remained afebrile, hemodynamically stable, and expressed a desire for discharge. Given clinical improvement, normalization of vital signs, and tolerance of oral intake, discharge was deemed appropriate. He will be dismissed home on oral Augmentin for 7 days, with close outpatient follow-up with his primary care provider. The patient was counseled on hydration, gradual diet advancement, and to return if symptoms recur or worsen. He verbalized understanding and agreement with the plan. Discharge Note New Diagnosis: Colitis New Medications: Augmentin 875/125mg po q12h x 7 days, Bentyl 20mg po q6H PRN x 4 days Follow Up: PCP Results pending: Stool Culture I spent 35 minutes [id number] with the patient on the day of discharge performing discharge exam, discussing hospital stay and discharge instructions with patient and caregivers, preparation of discharge records, prescriptions & referral forms and addressing any questions/concerns the patient had as documented above. - Vitals & Intake/Output Vital Signs: Vital Signs Temperature 98.6 F 04/02/25 07:00 Pulse Rate 70 04/02/25 07:00 Respiratory Rate 18 04/02/25 07:00 Blood Pressure 124/68 04/02/25 07:00 O2 Sat by Pulse Oximetry 97 04/02/25 07:00 Intake & Output: Intake & Output 03/30/25 03/31/25 04/01/25 04/02/25 11:59 11:59 11:59 11:59 Intake Total 520 3776 Balance 520 3776 Weight 81 kg - Lab Result Diagrams: 04/02/25 04:29 04/02/25 04:29 Lab Results-Last 24 Hrs: Lab Results-Last 24 Hours 04/01/25 04/02/25 04/02/25 Range/Units 12:55 04:29 04:29 WBC 4.9 (4.23-9.07) x10^3/uL RBC 4.18 L (4.63-6.08) x10^6/uL Hgb 13.5 L 12.8 L (13.7-17.5) g/dL Hct 40.2 37.5 L (40.1-51.0) % MCV 89.7 (79.0-92.2) fL MCH 30.6 (25.7-32.2) pg MCHC 34.1 (32.3-36.5) g/dL RDW 12.7 (11.6-14.4) % Plt Count 181 (163-337) x10^3/uL MPV 9.3 L (9.4-12.4) fL Segmented Neutrophils 52 (34.0-67.9) % Band Neutrophils 3 H (0.0-2.0) % Lymphocytes (Manual) 31 (21.8-53.1) % Monocytes (Manual) 14 H (5.3-12.2) % Platelet Estimate NORMAL (NORMAL) RBC Morphology NORMAL Sodium 137 (135-145) mmol/L Potassium 3.7 (3.5-5.1) mmol/L Chloride 104 (98-107) mmol/L Carbon Dioxide 26 (22-30) mmol/L Anion Gap 10.3 (5-15) MEQ/L BUN 4 L (9-20) mg/dL Creatinine 0.72 (0.66-1.25) mg/dL Estimated GFR 134.1 ML/MIN Glucose 94 (74-106) mg/dL Calcium 8.3 L (8.4-10.2) mg/dL Total Bilirubin 0.80 (0.2-1.3) mg/dL AST 39 (17-59) U/L ALT 19 (0-50) U/L Alkaline Phosphatase 76 (38-126) U/L Serum Total Protein 5.7 L (6.3-8.2) g/dL Albumin 3.2 L (3.5-5.0) g/dL Micro Results-Entire Visit: Microbiology 03/31/25 17:51 Ova and Parasite Result 1 - Final Stool Not Reportable Ova and Parasite Result 2 - Final Not Reportable Ova and Parasite Result 3 - Final Not Reportable Ova and Parasite Result 4 - Final Not Reportable Antimicrobic Susceptibility - Final Not Reportable - Radiology Exams Ordered Rad Exams-Entire Visit: Radiology Procedures Category Date Time Status ABDOMEN AND PELVIS W CONTRAST [CT] Stat Exams 03/31/25 12:03 Completed Discharge Exam General Appearance: no apparent distress Neurologic Exam: alert, oriented x 3, cooperative Eye Exam: PERRL Ears, Nose, Throat Exam: normal ENT inspection Neck Exam: normal inspection Respiratory Exam: normal breath sounds, lungs clear Cardiovascular Exam: regular rate/rhythm, normal heart sounds Gastrointestinal/Abdomen Exam: soft, normal bowel sounds, tenderness (mild diffuse low abdomen) Male Genitalia Exam: deferred Rectal Exam: deferred Back Exam: normal inspection Extremity Exam: normal inspection Skin Exam: normal color Final Diagnosis/Problem List - Final Discharge Diagnosis/Problem (1) Acute colitis Current Visit: Yes Status: Acute Assessment & Plan: CTA abdomen/pelvis showed diffuse colonic wall thickening consistent with colitis; no abscess, perforation, or obstruction. Stool studies: C. difficile negative; bacterial and parasitic panels pending, but clinical course consistent with resolving infectious colitis. Transitioned from IV Zosyn to Augmentin 875/125 mg PO every 12 hours 7 days to complete antimicrobial therapy. Continue Bentyl 20 mg PO every 6 hours as needed for abdominal cramping x 4 days supply; discontinue once abdominal discomfort resolves. Encourage oral hydration (water, electrolyte drinks) and a gradual return to a regular diet starting with bland, low-fat foods. Avoid NSAIDs or opioids that may worsen colonic irritation. Follow up with PCP in 1 week for review of pending stool results, hydration status, and GI symptom reassessment. Code(s): K52.9 - NONINFECTIVE GASTROENTERITIS AND COLITIS, UNSPECIFIED (2) Hyponatremia Current Visit: Yes Status: Acute Assessment & Plan: Initial sodium 130-137 with isotonic fluids and improved oral intake. Likely secondary to gastrointestinal losses. No ongoing fluid restriction or electrolyte therapy needed; encourage adequate oral fluids. Code(s): E87.1 - HYPO-OSMOLALITY AND HYPONATREMIA (3) Nausea & vomiting Current Visit: Yes Status: Acute Assessment & Plan: Resolved with supportive care and antiemetics. Continue Zofran 4 mg PO q8h PRN for breakthrough nausea. Monitor for recurrence with antibiotic use or dietary advancement. Code(s): R11.2 - NAUSEA WITH VOMITING, UNSPECIFIED (4) Diarrhea Current Visit: Yes Status: Acute Assessment & Plan: Frequency significantly decreased; one episode overnight prior to discharge. C. difficile negative; stool studies pending. May use loperamide PRN for non-bloody diarrhea if symptoms recur. Code(s): R19.7 - DIARRHEA, UNSPECIFIED (5) Abdominal pain Current Visit: Yes Status: Acute Assessment & Plan: Controlled with Bentyl and conservative management. Avoid opioids given prior cramping exacerbation. Use heating pad and hydration as adjuncts. Code(s): R10.9 - UNSPECIFIED ABDOMINAL PAIN (6) Reactive hypertension Current Visit: Yes Status: Acute Assessment & Plan: Initial elevation likely due to dehydration and pain; BP normalized with rehydration and symptom control. No indication for antihypertensive therapy at this time; recheck at PCP visit. Code(s): I10 - ESSENTIAL (PRIMARY) HYPERTENSION - Discharge Discharge Date: 04/02/25 Disposition: Home, Self-Care Condition: Stable Prescriptions: New Amox Tr/Potass Clav. 875 mg [Augmentin 875-125 Tablet] 875 mg PO BID 7 Days #14 tablet Dicyclomine HCl 20 mg [Bentyl 20 mg] 20 mg PO QID PRN 4 Days #16 tablet PRN Reason: Pain Loperamide HCl 2 mg [Imodium 2 mg] 2 mg PO PRN PRN cap PRN Reason: Diarrhea Continue Ondansetron ODT 4 MG [Zofran Odt 4 mg] 4 mg PO Q6HPRN PRN PRN Reason: Nausea Instructions: Colitis - Discharge instructions Follow up with: PRATIMA KWAN MD [Primary Care Provider, [facility]] - 04/15/25 10:45 am Forms: Discharge Instructions
== END 2025-04-02 10:50 | disposition home or self-care (01) ==
LOC: ED 11:52 → MED SURG 15:58
PROVIDERS: ADMIT Internal Medicine; ATTEND Internal Medicine
DX: K52.9 Noninfective gastroenteritis and colitis, unspecified (principal); E87.1 Hypo-osmolality and hyponatremia; R11.2 Nausea with vomiting, unspecified; R19.7 Diarrhea, unspecified; R10.9 Unspecified abdominal pain; I10 Essential (primary) hypertension